=== PATIENT | female | born 1990 | race Caucasian/White ===

== ENCOUNTER 2017-07-07 12:33 | Emergency (ER) | payer SELFPAY ==
[2017-07-07 12:47] VITALS: BP 121/79; BMI 21.1
--- NOTE | 2017-07-07 14:06 | DR.GENAD ---
HPI - PCP Primary Care Physician: NFD - HPI Comment HPI Comment: GETTING WORSE. HISTORY ANEMIA DUE TO MENORRHAGIA. NOT TAKING IRON SUPPLEMENT CURRENTLY. NO FEVER. NO SINUS DRAINAGE. HAVE HEADACHE WHICH IS CHRONIC FOR PATIENT. - Complaint/Symptoms Chief Complaint Doctors Comments: GENERALIZE WEAKNESS AND NEAR SYNCOPAL FEELING FOR SEVERAL WEEKS. Chief Complaint:: PT C/O ANEMIA AND SHE REC'D 2 BLOOD TRANSFUSIONS AROUND DECEMBER 2015, PT DOES NOT TAKE ANY IRON SUPPLEMENT, AND PT C/O, [place], TIREDNESS, 2 NOSE BLEEDS. Self Treatment fo Chief Complaint: PT DENIES ANY VISUALIZATION OF BLOOD AND SHE C/O FALLING ASLEEP AT WORK... PT IS PINK ALERT AND ORIENTED AT THIS TIME ,, - Nurses notes reviewed Nurses Notes Review: Yes - Source History Provided: Patient - Mode of Arrival Mode of Arrival: Ambulatory - Timing Onset of Chief Complaint: 06/24/17 Came on: Gradually - Duration Duration: Constant Duration: Days - Severity Severity: Moderate PMH - PMH Past Medical History: Yes Past Medical History: Anemia Past Surgical History: Yes Surgical History: Tonsillectomy Past Surgical History Comment: TUBALIGATION, - Family History History of Family Medical Conditions: No - Social History Does patient currently use any type of tobacco product: Yes Have you used tobacco products in the last 12 months: Yes Type of Tobacco Use: Cigarettes How many years tobacco product used: 1 Does any household member use tobacco: No Alcohol Use: None Do you use any recreational Drugs:: No Lives With: Family Lives Where: Home - infectious screening In the last 2 months have you had wt loss of >10#?: NO Have you had fever, night sweats or hemotysis?: No Have you traveled outside the country in the last 6 months?: No Isolation: Standard ROS - Review of Systems Constitutional: Weakness, Fatigue. negative: Chills, Fever Eyes: No Symptoms Reported. negative: Eye Pain, Blurred Vision, Discharge, Photophobia, Diplopia ENTM: No Symptoms Reported. negative: Ear Pain, Nose Discharge, Nose Congestion , Throat Pain Respiratoy: No Symptoms Reported. negative: Productive Cough, Short of Breath, Wheezing, Hemoptysis Cardiovascular: No Symptoms Reported. negative: Chest Pain, Edema, Palpitations Gastrointestinal/Abdominal: negative: No Symptoms Reported, Abdominal Pain, Nausea, Vomiting Genitourinary: No Symptoms Reported. negative: Dysuria, Frequency, Hematuria Neurological: Headache, Weakness, Dizziness Musculoskeletal: No Symptoms Reported Integumentary: No Symptoms Reported Hematologic/Lymphatic: Anemia Endocrine: No Symptoms Reported All Other Systems: Reviewed and Negative PE - Vital Signs Vitals: Temperature 98.2 F Pulse Rate 79 Respiratory Rate 18 Blood Pressure 121/79 O2 Sat by Pulse Oximetry 100 - General Limitations: No Limitations General Appearance: Alert - Head Head Exam: Normal Inspection - Eyes Eye exam: Normal Appearance - ENT ENT Exam: Normal External Ear Exam External Ear Exam: Normal External Inspection TM/Canal Exam: Bilateral Normal Nose Exam: Normal Nose Exam Mouth Exam: Normal Inspection Throat Exam: Normal Inspection - Neck Neck Exam: Trachea Midline - Chest Chest Inspection: Symmetric Chest Wall Rise - Respiratory Respiratory Exam: Normal Lung Sounds Bilat Respiratory Exam: Bilateral Clear to Auscultation - Cardiovascular Cardiovascular Exam: Regular Rate, Normal Rhythm, Normal Heart Sounds - Abdominal Exam Abdominal Exam: Normal Bowel Sounds, Soft. negative: Tenderness - Extremities Extremities Exam: Normal Inspection - Back Back Exam: Normal Inspection - Neurologic Neurological Exam: Alert, Oriented X3, CN II-XII Intact, Normal Gait, Reflexes Normal. negative: Motor Sensory Deficit - Psychiatric Psychiatric Exam: Normal Affect, Normal Mood - Skin Skin Exam: Normal Color MDM - Differential Diagnosis Differential Diagnosis: ANEMIA, DIZZINESS, GENERALIZE WEAKNESS, NEAR SYMCOPE Course - Treatment Treatment: SEE ORDERS. - Education/Counseling Education/Counseling: Patient, Education Educated On: Diagnosis, Needs for Follow Up ROR - Labs Reviewed Laboratory Results Reviewed?: Yes Result Diagrams: 07/07/17 13:55 07/07/17 13:55 Laboratory: WBC 8.0 X10^3/uL (3.6-10.0) 07/07/17 13:55 RBC 4.44 X10^6/uL (3.5-5.4) 07/07/17 13:55 Hgb 10.2 g/dL (12.0-16.0) L 07/07/17 13:55 Hct 31.3 % (36.0-47.0) L 07/07/17 13:55 MCV 70.4 fL (80.0-100.0) L 07/07/17 13:55 MCH 22.9 pg (27.0-34.0) L 07/07/17 13:55 MCHC 32.5 g/dL (33.0-35.0) L 07/07/17 13:55 RDW 17.4 % (11.6-16.5) H 07/07/17 13:55 Plt Count 309 X10^3/uL (150.0-450.0) 07/07/17 13:55 Plt Count Comment Adequate (ADEQUATE) 07/07/17 13:55 MPV 8.6 fL (7.4-11.0) 07/07/17 13:55 Neut % 43.6 % (42.0-75.0) 07/07/17 13:55 Lymph % 41.3 % (21.0-51.0) 07/07/17 13:55 Vilas % 9.4 % (0.0-13.0) 07/07/17 13:55 Eos % 4.4 % (0.9-2.9) H 07/07/17 13:55 Baso % 1.3 % (0.2-1.0) H 07/07/17 13:55 Neut # 3.5 x10^3/uL (2.2-4.8) 07/07/17 13:55 Lymph # 3.3 X10^3/uL (1.3-2.9) H 07/07/17 13:55 Vilas # 0.7 x10^3/uL (0.3-0.8) 07/07/17 13:55 Eos # 0.3 x10^3/uL (0.0-0.2) H 07/07/17 13:55 Baso # 0.1 X10^3/uL (0.0-0.1) 07/07/17 13:55 Absolute Nucleated RBC 0.0 /100WBC 07/07/17 13:55 Plt Morphology Comment Normal (NORMAL) 07/07/17 13:55 RBC Morphology Abnormal (NORMAL) A 07/07/17 13:55 Hypochromasia Slight A 07/07/17 13:55 Sodium 140 mmol/L (136-145) 07/07/17 13:55 Corrected Sodium TNP 07/07/17 13:55 Potassium 3.6 mmol/L (3.5-5.1) 07/07/17 13:55 Chloride 104 mmol/L (98-107) 07/07/17 13:55 Carbon Dioxide 26.7 mmol/L (21-32) 07/07/17 13:55 BUN 10 mg/dL (7-18) 07/07/17 13:55 Creatinine 0.50 mg/dL (0.55-1.02) L 07/07/17 13:55 Est GFR (MDRD) Af Amer > 60 (>60) 07/07/17 13:55 Est GFR (MDRD) Non-Af > 60 (>60) 07/07/17 13:55 Glucose 89 mg/dL (65-99) 07/07/17 13:55 Calcium 9.1 mg/dL (8.5-10.1) 07/07/17 13:55 Corrected Calcium TNP 07/07/17 13:55 Total Bilirubin 0.10 mg/dL (0.2-1.0) L 07/07/17 13:55 AST 15 Units/L (15-37) 07/07/17 13:55 ALT 15 Units/L (12-78) 07/07/17 13:55 Alkaline Phosphatase 48 Units/L (46-116) 07/07/17 13:55 Total Protein 8.5 g/dL (6.4-8.2) H 07/07/17 13:55 Albumin 4.2 g/dL (3.4-5.0) 07/07/17 13:55 Globulin 4.3 g/dL (2.5-4.5) 07/07/17 13:55 Albumin/Globulin Ratio 1.0 Ratio (1.1-2.1) L 07/07/17 13:55 - Diagnosis Discharge Problem: Dizziness, Near syncope, Generalized weakness Anemia Qualifiers: Anemia type: iron deficiency Iron deficiency anemia type: chronic blood loss Qualified Code(s): D50.0 - Iron deficiency anemia secondary to blood loss ( chronic) - Discharge Plan Disposition: 01 HOME, SELF-CARE Condition: Stable - Follow ups/Referrals Follow ups/Referrals: TESSA,None [Primary Care Provider] - 3 days JOSÉ JONES [STAFF PHYSICIAN] - 3 days - Instructions Instructions: Anemia, Nonspecific Additional Instructions: RETURN TO ED IF WORSE.
[2017-07-07 14:08] LABS: BASOPHILS # (AUTO) 0.1 X10^3/uL (0.0-0.1); BASOPHILS % (AUTO) 1.3 % (0.2-1.0); EOSINOPHILS # (AUTO) 0.3 x10^3/uL (0.0-0.2); EOSINOPHILS % (AUTO) 4.4 % (0.9-2.9); HEMATOCRIT 31.3 % (36.0-47.0); HEMOGLOBIN 10.2 g/dL (12.0-16.0); LYMPHOCYTES # (AUTO) 3.3 X10^3/uL (1.3-2.9); LYMPHOCYTES % (AUTO) 41.3 % (21.0-51.0); MEAN CORPUSCULAR HEMOGLOBIN 22.9 pg (27.0-34.0); MEAN CORPUSCULAR HGB CONC 32.5 g/dL (33.0-35.0); MEAN CORPUSCULAR VOLUME 70.4 fL (80.0-100.0); MEAN PLATELET VOLUME 8.6 fL (7.4-11.0); MONOCYTES # (AUTO) 0.7 x10^3/uL (0.3-0.8); MONOCYTES % (AUTO) 9.4 % (0.0-13.0); NEUTROPHILS # (AUTO) 3.5 x10^3/uL (2.2-4.8); NEUTROPHILS % (AUTO) 43.6 % (42.0-75.0); PLATELET COUNT 309 X10^3/uL (150.0-450.0); RED BLOOD COUNT 4.44 X10^6/uL (3.5-5.4); RED CELL DISTRIBUTION WIDTH 17.4 % (11.6-16.5)
[2017-07-07 14:17] LABS: ALANINE AMINOTRANSFERASE 15 Units/L (12-78); ALBUMIN 4.2 g/dL (3.4-5.0); ALKALINE PHOSPHATASE 48 Units/L (46-116); ASPARTATE AMINO TRANSFERASE 15 Units/L (15-37); BLOOD UREA NITROGEN 10 mg/dL (7-18); CALCIUM 9.1 mg/dL (8.5-10.1); CARBON DIOXIDE 26.7 mmol/L (21-32); CHLORIDE 104 mmol/L (98-107); SODIUM 140 mmol/L (136-145); TOTAL PROTEIN 8.5 g/dL (6.4-8.2); eGFR BLACK RACES > 60 (>60); eGFR NON BLACK RACES > 60 (>60)
[2017-07-07 14:27] LABS: HYPOCHROMASIA SLIGHT; PLATELET MORPHOLOGY COMMENT NORMAL (NORMAL)
== END 2017-07-07 14:46 | disposition home or self-care (01) ==
LOC: ER 13:14
DX: D50.0 Iron deficiency anemia secondary to blood loss (chronic) (principal); R42 Dizziness and giddiness; R55 Syncope and collapse; R53.1 Weakness
CPT/HCPCS: 36415; 80053; 85025; 99282; 99283